=== PATIENT | female | born 1975 | race Caucasian/White ===

== ENCOUNTER → 2016-07-24 15:48 | Outpatient (CLI) | payer BC ==
[2014-09-03 12:44] VITALS: BMI 22.4
[~2016-07-24 15:48] MED LIST: IBUPROFEN600 MG PO; MONONESSA1 TAB PO; PERCOCET 5-3251 TAB PO; TENORMIN25 MG PO
== END | disposition home or self-care (01) ==
LOC: D.MAMMO 08:00
DX: Z12.31 Encounter for screening mammogram for malignant neoplasm of breast (principal)

== ENCOUNTER → 2018-10-13 09:00 | Outpatient (CLI) | payer BC ==
[2014-09-03 12:44] VITALS: BMI 22.4
== END | disposition home or self-care (01) ==
LOC: D.MAMMO 09:00
PROVIDERS: ATTEND Obstetrics & Gynecology
DX: Z12.31 Encounter for screening mammogram for malignant neoplasm of breast (principal)

== ENCOUNTER 2019-10-16 08:00 | Outpatient (CLI) | payer BC ==
[2014-09-03 12:44] VITALS: BMI 22.4
== END 2019-10-16 10:07 | disposition home or self-care (01) ==
LOC: D.MAMMO 08:00
PROVIDERS: ATTEND Internal Medicine
DX: Z12.31 Encounter for screening mammogram for malignant neoplasm of breast (principal)